=== PATIENT | male | born 1985 | race Caucasian/White ===

== ENCOUNTER 2017-12-27 18:58 | Emergency (ER) | payer SELFPAY ==
[~2017-12-27] VITALS: Ht 190.5 cm; Wt 95.5 kg
[2017-12-27 19:06] VITALS: BP 129/82; Ht 190.5 cm; Wt 95.5 kg
== END 2017-12-27 21:35 | disposition left against medical advice (07) ==
LOC: D.ER 18:58
DX: M25.511 Pain in right shoulder (principal)